=== PATIENT | female | born 1995 | race African-American/Black ===

== ENCOUNTER 2017-05-24 11:51 | Emergency (ER) | payer OTHER, SELFPAY ==
[2017-05-24 12:36] LABS: #Basophils 0.1 thou/uL (0.0-0.2); #Eosinphils 0.1 thou/uL (0.0-0.7); #Lymphocytes 1.8 thou/uL (1.20-3.40); #Monocytes 0.6 thou/uL (0.11-0.59); #Neutrophils 4.4 thou/uL (1.40-6.50); %Basophils 0.8 % (0.0-1.0); %Eosinophils 1.5 % (0.0-10.0); %Lymphocytes 25.5 % (21.0-51.0); %Monocytes 7.9 % (0.0-10.0); Mean Platelet Volume 7.6 fL (7.4-10.4); Red Blood Cell (RBC) Count 4.13 mill/uL (4.20-5.40); White Blood Cell (WBC) Count 6.9 thou/uL (4.8-10.8)
[2017-05-24 13:00] LABS: ALT (SGPT) 7 U/L (8-55); AST (SGOT) 14 U/L (5-34); Alkaline Phosphatase 48 U/L (40-150); Anion Gap 8 mmol/L (10-20); BUN (Urea Nitrogen) 19 mg/dL (7.0-18.7); Bilirubin, Total 0.3 mg/dL (0.2-1.2); Calc. Creatinine Clearance 0 mL/min (70-130); Calcium 9.1 mg/dL (7.8-10.44); Carbon Dioxide 25 mmol/L (22-29); Chloride 108 mmol/L (98-107); Estimated GFR-MDRD Greater than 90; Globulin 3.1 g/dL (2.4-3.5); Protein, Total 6.9 g/dL (6.0-8.3)
[2017-05-24 14:21] LABS: Bilirubin Negative (Negative); Blood, Urine Large (Negative); Glucose, Urine (Dipstick) Negative (Negative); Ketone, Urine Negative (Negative); Nitrite Negative (Negative); Protein, Urine (Dipstick) 30 mg/dL (Neg-Trace)
[2017-05-24 14:35] LABS: Bacteria/HPF Rare-Few HPF (None Seen); Hyaline Casts/LPF 0-3 HYALINE CAST LPF (0-3 Hyaline); RBC/HPF GREATER THAN 50-TNTC HPF (0-3); Squamous Epithelial 0-3 HPF (0-3); WBC/HPF 0-3 HPF (0-3)
== END 2017-05-24 17:12 | disposition home or self-care (01) ==
LOC: ERS 11:51
DX: O02.1 Missed abortion (principal); J45.909 Unspecified asthma, uncomplicated; F41.9 Anxiety disorder, unspecified
CPT/HCPCS: 36415; 80053; 81003; 81015; 84703; 85025; 99284

== ENCOUNTER 2017-10-02 14:15 | Emergency (ER) | payer BC ==
[2017-10-02 15:45] LABS: Bilirubin Negative (Negative); Blood, Urine Negative (Negative); Clarity CLEAR (Clear); Glucose, Urine (Dipstick) Negative (Negative); Leukocyte Negative (Negative); Nitrite Negative (Negative); Protein, Urine (Dipstick) Negative (Neg-Trace); Specific Gravity, Urine 1.022 (1.002-1.036); pH, Urine 6.5 (5.0-9.0)
[2017-10-02 15:47] LABS: Pregnancy Test - Urine (BHCG) Negative (Negative); Pregu Control Background? CLEAR/WHITE (CLR/WHITE); Pregu Control Bar Appear? YES (CONTROL BAR); Specific Gravity 1.022 (1.002-1.036)
== END 2017-10-02 16:20 | disposition home or self-care (01) ==
LOC: ERS 14:15
DX: S39.012A Strain of muscle, fascia and tendon of lower back, initial encounter (principal); J45.909 Unspecified asthma, uncomplicated; F41.9 Anxiety disorder, unspecified; X58.XXXA Exposure to other specified factors, initial encounter
CPT/HCPCS: 81003; 81025; 99284

== ENCOUNTER 2017-12-04 14:47 | Emergency (ER) | payer BC ==
[2017-12-04 15:54] LABS: Bilirubin Negative (Negative); Blood, Urine Negative (Negative); Clarity CLEAR (Clear); Glucose, Urine (Dipstick) Negative (Negative); Leukocyte Negative (Negative); Nitrite Negative (Negative); Protein, Urine (Dipstick) Negative (Neg-Trace); Specific Gravity, Urine 1.026 (1.002-1.036)
[2017-12-04 15:55] LABS: Pregnancy Test - Urine (BHCG) Negative (Negative); Pregu Control Background? CLEAR/WHITE (CLR/WHITE); Pregu Control Bar Appear? YES (CONTROL BAR); Specific Gravity 1.026 (1.002-1.036)
== END 2017-12-04 18:09 | disposition home or self-care (01) ==
LOC: ERS 14:47
DX: R10.13 Epigastric pain (principal); R30.0 Dysuria; J45.909 Unspecified asthma, uncomplicated; F41.9 Anxiety disorder, unspecified
CPT/HCPCS: 81003; 81025; 99284

== ENCOUNTER 2018-07-08 22:01 | Emergency (ER) | payer BC, MEDICAID ==
[2018-07-08 22:35] LABS: #Basophils 0.1 thou/uL (0.0-0.2); #Eosinphils 0.2 thou/uL (0.0-0.7); #Lymphocytes 2.7 thou/uL (1.20-3.40); #Monocytes 0.7 thou/uL (0.11-0.59); %Basophils 0.6 % (0.0-1.0); %Eosinophils 1.9 % (0.0-10.0); %Lymphocytes 28.3 % (21.0-51.0); %Monocytes 6.9 % (0.0-10.0); %Neutrophils 62.3 % (42.0-75.0); Hemoglobin 12.2 g/dL (12.0-16.0); Mean Corpuscular HGB CONC 32.5 g/dL (32.0-36.0); Mean Corpuscular Hemoglobin 28.3 pg (27.0-31.0); Mean Corpuscular Volume 87.1 fL (78.0-98.0); Mean Platelet Volume 6.5 fL (7.4-10.4); Platelet Count 277 thou/uL (130-400); RBC Distribution Width 11.7 % (11.5-14.5); Red Blood Cell (RBC) Count 4.33 mill/uL (4.20-5.40); White Blood Cell (WBC) Count 9.6 thou/uL (4.8-10.8)
[2018-07-08 22:38] LABS: Bilirubin Negative (Negative); Blood, Urine Large (Negative); Clarity Slightly Cloudy (Clear); Glucose, Urine (Dipstick) Negative (Negative); Leukocyte Trace (Negative); Nitrite Negative (Negative); Protein, Urine (Dipstick) Negative (Neg-Trace); RBC/HPF 0-3 HPF (0-3); Specific Gravity, Urine 1.025 (1.005-1.030); Urobilinogen 0.2 mg/dL (0.2-1.0)
[2018-07-08 22:39] LABS: Bacteria/HPF 2+ HPF (None Seen); Hyaline Casts/LPF NONE SEEN LPF (0-3 Hyaline); Sperm/HPF Rare HPF (None Seen)
[2018-07-08 22:41] LABS: PTT 31.9 SEC (22.9-36.1); Prothrombin Time 13.2 SEC (12.0-14.7)
[2018-07-08 22:50] LABS: ALT (SGPT) 14 U/L (8-55); AST (SGOT) 17 U/L (5-34); Alkaline Phosphatase 51 U/L (40-150); Anion Gap 13 mmol/L (10-20); BUN (Urea Nitrogen) 16 mg/dL (7.0-18.7); Bilirubin, Total 0.3 mg/dL (0.2-1.2); Calc. Creatinine Clearance 0 mL/min (70-130); Calcium 9.5 mg/dL (7.8-10.44); Carbon Dioxide 24 mmol/L (22-29); Chloride 106 mmol/L (98-107); Estimated GFR-MDRD Greater than 90; Globulin 3.5 g/dL (2.4-3.5); Glucose 85 mg/dL (70-105); Potassium 3.8 mmol/L (3.5-5.1); Protein, Total 7.5 g/dL (6.0-8.3); Sodium 139 mmol/L (136-145)
--- NOTE | 2018-07-09 07:51 | ULT ---
PELVIC ULTRASOUND WITH GRAYSCALE, DOPPLER, AND SPECTRAL ANALAYS IMAGING TRANVAGINAL PELVIC ULTRASOUND: Clinical indication: Vaginal bleeding. patient. FINDINGS: There is evidence of a gestational sac, yolk sac and a tiny echogenic focus indicative of a morris e with corresponding ultrasound age of 6 weeks 0 day gestation. cardiac activity is documented at 103 beats/minute. Physiologic appearing cyst is seen within the left ovary. No significant free pe lvic fluid. Doppler evaluation reveals flow to each ovary with vascular waveforms elicited. IMPRESSION: Early live intrauterine gestation, as above. Continued imaging follow up may be obtained as clinically indicated. POS: [facility]
== END 2018-07-09 01:10 | disposition home or self-care (01) ==
LOC: SCSER 22:01
DX: O20.0 Threatened abortion (principal); O16.1 Unspecified maternal hypertension, first trimester; O99.511 Diseases of the respiratory system complicating pregnancy, first trimester; J45.909 Unspecified asthma, uncomplicated; O99.341 Other mental disorders complicating pregnancy, first trimester; F41.9 Anxiety disorder, unspecified; Z3A.01 Less than 8 weeks gestation of pregnancy; Z79.899 Other long term (current) drug therapy
CPT/HCPCS: 76856; 80053; 81003; 81015; 84702; 85025; 85610; 85730; 86850; 86900; 86901; 96360; 96361

== ENCOUNTER 2018-10-08 06:48 | Outpatient (CLI) | payer OTHER ==
--- NOTE | 2018-10-08 09:13 | ULT ---
COMPLETE OB ULTRASOUND GREATER THAN 14 WEEKS: HISTORY: Anatomy, size and dates. FINDINGS: A single viable intrauterine fetus is noted in breech presentation. Placenta is posterior. Amniotic fluid is within normal limits. Cervical length 3.2 cm. heart rate 135 b.p.m. The placenta i s low-lying with the tip near the level of the internal os but without sabina previa. Consider short- term followup in this regard. ANATOMY: Visualized brain, 4-chamber heart, 3-vessel cord, stomach, bladder, kidneys, spine, and extremi ty regions are unremarkable. BIOMETRY: BPD 3.9 cm-18 weeks 0 days Head circumference 15.2 cm-18 weeks 2 days Abdominal circumference 12.5 cm-18 weeks 1 day Femur length 2.8 cm-18 weeks 3 days IMPRESSION: Viable intrauterine fetus at 18 weeks 2 days gestation with an estimated date of delivery of 03/09/2019 , estimated weight 231 gm, 8th percentile. POS: OFF
== END 2018-10-08 06:49 | disposition home or self-care (01) ==
LOC: BICULT 06:48
PROVIDERS: ATTEND Family Medicine
DX: O09.892 Supervision of other high risk pregnancies, second trimester (principal); Z3A.18 18 weeks gestation of pregnancy
CPT/HCPCS: 76805

== ENCOUNTER 2018-10-26 06:49 | Outpatient (CLI) | payer OTHER ==
--- NOTE | 2018-10-26 07:54 | ULT ---
Obstetric sonogram Limited HISTORY: Evaluate for cervical length. FINDINGS/IMPRESSION: The cervix is closed and 3.1 cm. The lower margin of a posterior placenta approaches the internal cervical loss. Consistent with alberto nal previa. Please consider continued sonographic follow-up regarding placenta previa and regression from the internal os.
== END 2018-10-26 06:50 | disposition home or self-care (01) ==
LOC: BICULT 06:49
PROVIDERS: ATTEND Family Medicine
DX: O09.212 Supervision of pregnancy with history of pre-term labor, second trimester (principal)
CPT/HCPCS: 76816

== ENCOUNTER 2019-01-04 07:54 | Outpatient (CLI) | payer BC, OTHER ==
--- NOTE | 2019-01-04 08:33 | ULT ---
EXAM: US OB Follow Up PROVIDED CLINICAL HISTORY: Evaluation of cervical length. COMPARISON: 10/26/2018 FINDINGS: Limited sonographic images are obtained which demonstrates evidence of an intrauterine gestation, but only the lower uterine segment was imaged on this exam. The tip of the placenta is low-lying. The cervical length measures 3.55 cm based on transabdominal imaging. The remainder of the fetus includin g evaluation of heart tones was not assessed on this exam. IMPRESSION: 1. Low-lying placenta. 2. Cervical length measures 3.55 cm. 3. Only limited sonographic images were obtained to evaluate for cervical length.
== END 2019-01-04 07:55 | disposition home or self-care (01) ==
LOC: BICULT 07:54
PROVIDERS: ATTEND Family Medicine
DX: O09.213 Supervision of pregnancy with history of pre-term labor, third trimester (principal)
CPT/HCPCS: 76816

== ENCOUNTER 2019-01-08 08:29 | Day surgery (SDC) | payer BC, OTHER ==
[2019-01-08 09:07] VITALS: BP 124/66; TEMP 98.8; BMI 35.3
[2019-01-08 10:07] LABS: FFN Internal QC Analyzer PASS (PASS); FFN Internal QC Cassette PASS (PASS); Fetal Fibronectin Negative (Negative)
--- NOTE | 2019-01-09 03:24 | SS ---
DATE OF ADMISSION: 01/08/2019 DATE OF DISCHARGE: 01/08/2019 REGULAR PHYSICIAN: Mitch Stevens MD. EVALUATING PHYSICIAN: Mike Vee MD CHIEF COMPLAINT: Cramping at home. HISTORY OF PRESENT ILLNESS: Ms. Sheridan is a 23-year-old black G5, P2, AB2, with an estimated date of confinement of 03/03/2019, who presents complaining of intermittent abdominal cramping since 5:00 am. She denies rupture of membranes, vaginal bleeding, or change in bowel or bladder habits. Her care has been with Dr. Stevens. PAST OBSTETRICAL HISTORY: Includes a in 2013 followed by successful in 2014. PAST MEDICAL HISTORY: None. PAST SURGICAL HISTORY: as above. CURRENT MEDICATIONS: vitamins and aspirin. ALLERGIES: NO KNOWN ALLERGIES. SOCIAL HISTORY: Denies tobacco, alcohol, or drug use. FAMILY HISTORY: Unremarkable. REVIEW OF SYSTEMS: Denies nausea, vomiting, fever, chills, rupture of membranes , vaginal bleeding. PHYSICAL EXAMINATION: VITAL SIGNS: In triage, her vital signs are stable and she is afebrile. GENERAL: She is in no distress. She is very pleasant. ABDOMEN: Soft, nontender, and gravid. PELVIC: After fibronectin was obtained, it shows the cervix to be fingertip, long, soft, and posterior. heart rate tracing is stable. Spontaneous accelerations are seen. No decelerations are noted. No significant uterine contractions are seen. LABORATORY DATA: fibronectin returns negative. ASSESSMENT: 1. 32-week intrauterine . 2. No evidence of labor. PLAN: The patient will be dismissed to home. labor precautions were reviewed with her in detail. Dr. Stevens is out of town this week so she has an appointment with him next week. Job ID: [id number] MTDD
== END 2019-01-08 10:25 | disposition home or self-care (01) ==
LOC: L&D/OP 08:29
PROVIDERS: ATTEND Obstetrics & Gynecology
DX: O99.89 Other specified diseases and conditions complicating pregnancy, childbirth and the puerperium (principal); R10.9 Unspecified abdominal pain; Z3A.32 32 weeks gestation of pregnancy
CPT/HCPCS: 82731; 99283

== ENCOUNTER 2019-01-09 07:31 | Outpatient (CLI) | payer BC, OTHER ==
--- NOTE | 2019-01-09 08:37 | ULT ---
OB ULTRASOUND: INDICATION: anatomy and growth. FINDINGS: A limited exam was performed to assess PRABHAKAR, growth, and color Doppler which was requested. A single viable again noted. Gestational age by ultrasound is 30 weeks 4 days. BPD 29 weeks 2 days HC 30 weeks 6 days AC 30 weeks 2 days FL 31 weeks 5 days EFW: 1612 grams. Umbilical cord Doppler at cord insertion: Peak systolic velocity: 66.3 cm/s. End-diastolic velocity: 26.1 cm/s. Resistive index: 0.606. Umbilical artery velocity mid cord: Peak systolic velocity: 96.5 cm/s. End-diastolic velocity: 41.2 cm/s. Resistive index: 0.573. Umbilical cord Doppler at placenta: Peak systolic velocity: 57.7 cm/s. End-diastolic velocity: 26.7 cm/s. Resistive index: 0.538. PRABHAKAR recorded at 12.71 cm. The fetus is vertex. Placenta anterior. POS: [facility]
== END 2019-01-09 07:32 | disposition home or self-care (01) ==
LOC: BICULT 07:31
PROVIDERS: ATTEND Family Medicine
DX: O09.893 Supervision of other high risk pregnancies, third trimester (principal); Z3A.30 30 weeks gestation of pregnancy
CPT/HCPCS: 76700; 76816

== ENCOUNTER 2019-02-17 22:20 | Day surgery (SDC) | payer BC, OTHER ==
[2019-02-17 22:53] VITALS: BMI 35.6
[2019-02-18 00:12] VITALS: BP 115/62; TEMP 98.6
[2019-02-18] MEDS ORDERED: hydrALAZINE 20 MG/ML VIAL SLOW IVP PRN (00:51)
--- NOTE | 2019-02-18 01:39 | PRG ---
DATE OF SERVICE: 02/17/2019 PRIMARY OB: Mitch Stevens MD CHIEF COMPLAINT: Abdominal pain and dizziness. HISTORY OF PRESENT ILLNESS: The patient is a 23-year-old, G5, P2 female with an intrauterine at 38 weeks and 1 day, presenting to Labor and Delivery with an episode of dizziness at the store earlier today that has since resolved and contractions that has since resolved. The patient reports that she was concerned and came for evaluation. The patient has not seen her primary OB Dr. Stevens for 2 weeks, but has an appointment tomorrow. She reports that she recently returned from a trip to [place]. She reports that she was counseled to make frequent stops for walking, keep her circulation going and confirms that she had complied with those recommendations. The patient denies any fever, illness, cough, chest pain, shortness of breath, nausea, vomiting, diarrhea, constipation, hip problems, knee problems, or muscle weakness. She does report a rash on her tongue and believes that she may have thrush, but we will be showing that to her doctor tomorrow. She denies any other rash. Denies vaginal bleeding or leakage of fluid, vaginal irritation or discharge, urinary urgency or frequency. PAST MEDICAL HISTORY: Negative. PAST SURGICAL HISTORY: One prior . ALLERGIES: NO KNOWN DRUG ALLERGIES. MEDICATIONS: None. OB LABORATORY DATA: Unavailable at the time of dictation. SOCIAL HISTORY: Denies drug, alcohol, or tobacco use. REVIEW OF SYSTEMS: Per HPI. PHYSICAL EXAMINATION: VITAL SIGNS: Blood pressure 119/65, heart rate 92, respiratory rate 18, temperature 98.6, saturating 98% on room air. GENERAL: She appears to be in no acute distress. She is alert and oriented, cooperative, and pleasant to interact with. HEENT: Head is normocephalic, atraumatic. In her mouth, her tongue does appear to have a white patchy appearance with what appears to be desquamative region on the side of the tongue. LUNGS: Clear to auscultation bilaterally. HEART: Regular rate and rhythm. ABDOMEN: Gravid, soft, nontender. EXTREMITIES: Nontender, nonedematous, and symmetrical. No tenderness. Negative Homans sign. Cervical exam per nursing staff. She is 1 cm dilated, 50% effaced, -3 station. heart tracing shows the fetus with a baseline in the 120s with moderate long-term variability, positive 15 x 15 accelerations, no decelerations. Tocometer shows a single contraction. ASSESSMENT AND PLAN: The patient is a 23-year-old, G5, P2 female with an intrauterine at 38 weeks and a day, presenting for dizziness that resolved prior to arrival and contractions that resolved prior to arrival. The patient has been given reassurance. She has been educated on common physiologic changes in and I have counseled her that if she feels intermittent dizziness, to stop and give herself some time to allow things to pass either by standing still in a secure location, sitting or raising her legs, and allowing the symptoms to pass. If symptoms were to persist or worsen, to seek medical attention. We also reassured her to contractions at this time when is normal and have given her term labor precautions. Fetus has a category 1 tracing and reactive NST. The patient's tongue does appear to have some abnormality to it. It may be evidence of thrush. The patient has been gargling with salt water, which she reports has been helping. We have recommended that she show this to her primary OB tomorrow. I have also recommended an [id number] remedy of gentian wolf for treatment for thrush if that is what this is. The patient is being discharged home. Job ID: [id number]
== END 2019-02-18 00:05 | disposition home or self-care (01) ==
LOC: L&D/OP 22:20
PROVIDERS: ATTEND Family Medicine
DX: O47.1 False labor at or after 37 completed weeks of gestation (principal); O99.89 Other specified diseases and conditions complicating pregnancy, childbirth and the puerperium; R42 Dizziness and giddiness; Z3A.38 38 weeks gestation of pregnancy
CPT/HCPCS: 99282

== ENCOUNTER 2019-02-27 05:41 | Inpatient (IN) | payer BC, OTHER ==
[2019-02-27] MEDS ORDERED: Lactated Ringer's 1,000 ML IV SCH (05:52)
[2019-02-27] MEDS ORDERED: Ondansetron PF 4 MG/2 ML Vial IVP PRN ×3 (05:52→10:31)
[2019-02-27] MEDS ORDERED: hydrALAZINE 20 MG/ML VIAL SLOW IVP PRN ×2 (05:52→10:31)
[2019-02-27] MEDS ORDERED: Promethazine HCl 25 MG/ML VIAL IM PRN ×2 (05:52→07:18)
[2019-02-27] MEDS ORDERED: CEFAZOLIN 2 GM in Premix Bag 1 BAG IVPB SCH (06:00)
[2019-02-27] MEDS ORDERED: Bicitra 30 ML UDCUP PO SCH (06:00)
[2019-02-27 06:14] VITALS: BMI 35.1
[2019-02-27 06:43] LABS: Hemoglobin 10.8 g/dL (12.0-16.0); Mean Corpuscular HGB CONC 33.2 g/dL (32.0-36.0); Mean Corpuscular Hemoglobin 28.2 pg (27.0-31.0); Mean Platelet Volume 8.5 fL (7.4-10.4); Platelet Count 281 thou/uL (130-400); RBC Distribution Width 15.4 % (11.5-14.5); Red Blood Cell (RBC) Count 3.81 mill/uL (4.20-5.40); White Blood Cell (WBC) Count 9.2 thou/uL (4.8-10.8)
[2019-02-27] MEDS ORDERED: HYDROmorphone 2 MG/ML VIAL SLOW IVP PRN (07:18)
[2019-02-27] MEDS ORDERED: Naloxone HCl 0.4 mg/ml Vial IV PRN (07:18)
[2019-02-27] MEDS ORDERED: L&D-Morphine 4 MG/ML VIAL SLOW IVP PRN (07:18)
[2019-02-27] MEDS ORDERED: Naloxone HCl 0.4 mg/ml Vial IVP PRN ×2 (07:18)
[2019-02-27] MEDS ORDERED: Ketorolac Tromethamine 30 MG/ML VIAL IVP PRN (07:18)
[2019-02-27] MEDS ORDERED: diphenhydrAMINE 50 MG/ML VIAL IVP PRN (07:18)
[2019-02-27] MEDS ORDERED: Promethazine HCl 25 MG SUPP PR PRN (07:18)
[2019-02-27] MEDS ORDERED: Meperidine HCl/PF 25 MG/ML VIAL SLOW IVP PRN (07:18)
[2019-02-27] MEDS ORDERED: Ondansetron HCl/PF 4 MG/2 ML Vial IVP PRN (07:18)
[2019-02-27 07:21] LABS: HBSAg Index 0.18 S/CO (0-0.99); Hep B Surf Ag Non-Reactive S/CO (NonReactive)
[2019-02-27 07:22] LABS: Syphilis Antibody Nonreactive (Nonreactive)
[2019-02-27] MEDS ORDERED: MORPHINE 5 MG/10 ML PF VIAL ONE (07:23)
[2019-02-27] MEDS ORDERED: Fentanyl 100 MCG/2 ML VIAL ONE (07:23)
[2019-02-27] MEDS ORDERED: Ondansetron PF 4 MG/2 ML Vial ONE ×2 (07:24→16:10)
[2019-02-27] MEDS ORDERED: ePHEDrine/0.9% NaCl/PF SYRINGE 50 mg/10 ml ONE (07:24)
[2019-02-27] MEDS ORDERED: Dexamethasone 4 mg/ml Vial ONE (07:24)
[2019-02-27] MEDS ORDERED: PHENYLEPHRINE-NS 100 MCG/ML 10 ML SYRINGE ONE (07:24)
[2019-02-27] MEDS ORDERED: Ketorolac Tromethamine 30 MG/ML VIAL ONE (07:24)
[2019-02-27] MEDS ORDERED: Oxytocin 10 UNITS/ML VIAL ONE (07:24)
[2019-02-27] MEDS ORDERED: Phenylephrine HCL 10 MG/ML VIAL ONE (07:25)
[2019-02-27] MEDS ORDERED: Communication Order-Pharmacy FS SCH (07:30)
[2019-02-27] MEDS ORDERED: Methylergonovine 0.2 MG/ML VIAL ONE (08:02)
[2019-02-27] MEDS ORDERED: Promethazine HCl 25 MG/ML VIAL ONE (09:22)
[2019-02-27] MEDS ORDERED: NS / Oxytocin 40 units/1000ml 1,000 ML IV SCH (10:31)
[2019-02-27] MEDS ORDERED: Zolpidem Tartrate 5 MG TAB PO PRN (10:31)
[2019-02-27] MEDS ORDERED: Bisacodyl 10 MG SUPP PR PRN (10:31)
[2019-02-27] MEDS ORDERED: Meperidine HCl/PF 25 MG/ML VIAL IM PRN (10:31)
[2019-02-27] MEDS ORDERED: Lanolin Ointment 7 GM TUBE TOP PRN (10:31)
[2019-02-27] MEDS ORDERED: diphenhydrAMINE 25 MG CAP PO PRN (10:31)
[2019-02-27] MEDS: Ketorolac Tromethamine 30 MG/ML VIAL IVP SCH ×3 (12:10→23:35)
[2019-02-27] MEDS ORDERED: ePHEDrine 50 MG/ML VIAL ONE (16:10)
[2019-02-27] MEDS ORDERED: Dexamethasone 20 MG/5 ML VIAL ONE (16:10)
[2019-02-27] MEDS: Docusate Calcium (SURFAK) 240 MG CAP PO SCH (21:10)
[2019-02-27] MEDS: Ferrous Sulfate 325 MG TAB PO SCH (21:10)
--- NOTE | 2019-02-27 21:58 | OP ---
DATE OF PROCEDURE: 02/27/2019 LOCATION: [place], [place]. RESIDENT SURGEON: Uri Avila DO PROCEDURE PERFORMED: Repeat low-transverse section. PREOPERATIVE DIAGNOSES: 1. Term intrauterine . 2. Prior section. POSTOPERATIVE DIAGNOSES: 1. Term intrauterine . 2. Prior section. ANESTHESIA: Spinal. INDICATIONS FOR SURGERY: The patient is a 23-year-old, G2, P1 female at 39 and 3 weeks who presents for repeat scheduled section. PROCEDURE IN DETAIL: After risks, benefits, and alternatives were explained to the patient, she gave informed consent. Preoperative antibiotics included Ancef 2 g IV and 500 mg of azithromycin. The patient was taken to the operating room and spinal anesthesia was initiated. She was placed in the supine position with a left tilt, prepped and draped in usual sterile fashion. A Pfannenstiel incision was made with a scalpel and carried down to the level of fascia which was sharply nicked. The fascial cut was extended bilaterally with Huang scissors. The inferior and superior edges of the cut fascial edges were elevated with Jovita clamps. The underlying rectus muscles were sharply and bluntly dissected free. The recti were divided digitally, retracted manually. The peritoneum was entered bluntly and retracted manually. Bladder blade was placed. A low transverse score was then made with a scalpel and the uterus entered in the midline with the scalpel, clear fluid was seen. The hysterotomy was extended manually. The infant was noted to be vertex and easily delivered by fundal pressure. The mouth and nares were bulb suctioned. The cord was then clamped and cut and grossly normal female was handed to the awaiting nurse. Cord blood was obtained. The placenta was manually extracted. Found to be intact with three-vessel cord and discarded. The uterus was externalized and the endometrium was curetted with a dry lap. The bladder blade was placed. The uterus was closed with a running locking 0 Vicryl suture. Three [id number] sutures were then made. Following this, hemostasis was noted. The abdomen was irrigated with saline and suctioned free of clots. The uterus was internalized and hysterotomy was again noted to be hemostatic. The fascia was then closed with a running nonlocking 0 PDS suture. Subcutaneous tissue was irrigated and there were no bleeders. The skin was approximated with eron and a pressure dressing was placed. All counts were correct. The patient tolerated the procedure well and was taken to the recovery room in stable condition. ESTIMATED BLOOD LOSS: 500 mL. COMPLICATIONS: None. SPECIMENS: Cord blood sent to lab for blood type. FINDINGS: 1. Grossly normal female infant with Apgars of 7 and 9, who briefly required DeLee suction with return of 8 mL of fluid and briefly received CPAP. 2. Grossly normal placenta with three-vessel cord discarded. DRAINS: Garcia to gravity draining clear urine. Job ID: [id number] [facility]
[2019-02-28] MEDS: HYDROcodone/Acetaminophen 5/325 mg Tablet PO PRN ×3 (04:46→23:33)
[2019-02-28 04:47] LABS: Hemoglobin 9.6 g/dL (12.0-16.0); Mean Corpuscular HGB CONC 31.6 g/dL (32.0-36.0); Mean Corpuscular Volume 85.4 fL (78.0-98.0); Mean Platelet Volume 8.5 fL (7.4-10.4); Platelet Count 237 thou/uL (130-400); RBC Distribution Width 15.2 % (11.5-14.5); Red Blood Cell (RBC) Count 3.56 mill/uL (4.20-5.40); White Blood Cell (WBC) Count 14.3 thou/uL (4.8-10.8)
[2019-02-28] MEDS: Ibuprofen 800 MG TAB PO SCH ×3 (05:45→20:50)
[2019-02-28] MEDS: Prenatal Vitamin 1 TAB PO SCH (09:49)
[2019-02-28] MEDS: Ferrous Sulfate 325 MG TAB PO SCH ×2 (09:49→20:50)
[2019-02-28] MEDS: Docusate Calcium (SURFAK) 240 MG CAP PO SCH ×2 (09:49→20:50)
[2019-02-28] MEDS ORDERED: Adacel (T-DAP) 0.5 ML SYRINGE IM ONE (10:31)
[2019-02-28] MEDS: Simethicone Chewable 80 MG TAB PO PRN (19:23)
[2019-03-01] MEDS: Ibuprofen 800 MG TAB PO SCH ×3 (05:46→21:56)
[2019-03-01] MEDS: Ferrous Sulfate 325 MG TAB PO SCH ×2 (10:14→21:57)
[2019-03-01] MEDS: Prenatal Vitamin 1 TAB PO SCH (10:14)
[2019-03-01] MEDS: Docusate Calcium (SURFAK) 240 MG CAP PO SCH ×2 (10:14→21:57)
[2019-03-01] MEDS: HYDROcodone/Acetaminophen 5/325 mg Tablet PO PRN (10:17)
[2019-03-01] MEDS: Simethicone Chewable 80 MG TAB PO PRN (21:58)
[2019-03-02] MEDS: Ibuprofen 800 MG TAB PO SCH ×2 (06:25→14:45)
[2019-03-02] MEDS: Ferrous Sulfate 325 MG TAB PO SCH (07:42)
[2019-03-02] MEDS: HYDROcodone/Acetaminophen 5/325 mg Tablet PO PRN (07:42)
[2019-03-02] MEDS: Docusate Calcium (SURFAK) 240 MG CAP PO SCH (07:42)
[2019-03-02] MEDS: Prenatal Vitamin 1 TAB PO SCH (07:42)
[2019-03-02 15:26] VITALS: BP 131/88; TEMP 98.8
== END 2019-03-02 16:23 | disposition home or self-care (01) | DRG 788 ==
LOC: L&D 05:41 → 3SE 11:21
PROVIDERS: ADMIT Family Medicine; ATTEND Family Medicine
PROC: 10D00Z1 Extraction of Products of Conception, Low, Open Approach (ICD-10-PCS; principal; 2019-02-27)
DX: O34.211 Maternal care for low transverse scar from previous cesarean delivery (principal); Z3A.39 39 weeks gestation of pregnancy; Z37.0 Single live birth
CPT/HCPCS: 36415; 51702; 85027; 86780; 86850; 86900; 86901; 87340; J0690; J1100; J1885; J2210; J2274; J2370; J2405; J2550; J2590; J3010; J3490